=== PATIENT | female | born 1950 | race Caucasian/White ===

== ENCOUNTER 2016-09-27 12:48 | Inpatient (IN) | payer MEDICARE, OTHER ==
[2016-09-27 14:26] LABS: AUTOMATED BASOPHIL 0.4 % (0-2); AUTOMATED EOSINOPHIL 2.4 % (0-5); AUTOMATED MONOCYTE 9.7 % (3-10); AUTOMATED NEUTROPHIL 62.5 % (45-76); MPV 9.4 fL (7.4-10.4)
[2016-09-27 14:42] LABS: BLOOD UREA NITROGEN 19 MG/DL (7-17); CALCIUM 9.3 MG/DL (8.4-10.2); CALCULATED OSMOLALITY 275 MOs/Kg (270-290); CHLORIDE 100 mEq/L (98-107); CPK TOTAL WITH POSSIBLE MB 121 IU/L (30-134); GLUCOSE 128 MG/DL (70-99); SODIUM LEVEL 141 mEq/L (137-146); TOTAL PROTEIN 7.4 G/DL (6.3-8.2)
[2016-09-27 14:59] LABS: PARTIAL THROMB. TIME 40.4 SEC (22-35); PT-INR 2.4
[2016-09-27] MEDS ORDERED: ALBUTEROL 0.083% 3 ML NEB NEB ONE ×2 (15:03→15:04)
[2016-09-27] MEDS ORDERED: METHYLPREDNISOLONE 125 MG/2 ML VIAL IV ONE (15:04)
[2016-09-27 15:15] LABS: ALLEN'S TEST PASS; BEb 1.7 (+/- 2); TCO2 27.9 MMOL/L (23-27)
[2016-09-27 15:16] LABS: ABG Draw Site Right Radial
--- NOTE | 2016-09-27 15:20 | DIRPT ---
CLINICAL DATA: Cough, dyspnea. EXAM: CHEST 2 VIEW COMPARISON: March 31, 2014. FINDINGS: Stable cardiomediastinal silhouette. No pneumothorax or pleural effusion is noted. Left lung is clear. Increased right infrahilar opacity is noted concerning for possible pneumonia. Bony thorax unremarkable. IMPRESSION: Increased right infrahilar opacity is noted concerning for possible pneumonia. Follow-up radiographs are recommended to ensure resolution. Electronically Signed By: Kermit Warner Jr, M.D. On: 09/27/2016 15:17
[2016-09-27] MEDS ORDERED: CEFTRIAXONE 1 GM in D5W 100 ML IV ONE (15:29)
[2016-09-27] MEDS ORDERED: AZITHROMYCIN 250 MG TAB PO ONE (15:29)
[2016-09-27] MEDS ORDERED: ALBUTEROL 6.7 GM MDI INH ONE (15:31)
--- NOTE | 2016-09-27 15:32 | EDPRACDOC ---
- General Information Chief Complaint: Dyspnea/Resp distress Stated Complaint: COUGH/CONGESTION Time Seen by Provider: 09/27/16 15:00 Information Source: Patient, Family Mode Of Arrival: Car Home Medications: Home Medications Acetaminophen Ex Str Tablet [TYLENOL EXTRA STRENGTH Tablet] 1,000 mg PO Q8H PRN 07/31/15 Alprazolam 0.25 mg PO TID PRN 07/31/15 Amlodipine [Norvasc] 5 mg PO DAILY 07/31/15 Aspirin (Enteric Coated) [Ecotrin] 81 mg PO DAILY 07/31/15 Buspirone HCl [Buspar] 10 mg PO BID 07/31/15 Cholecalciferol [Vitamin D] 1,000 units PO DAILY 07/31/15 Gabapentin [Neurontin] 600 mg PO TID 07/31/15 Insulin Detemir [Levemir Flextouch] 42 units SQ QHS 07/31/15 Insulin Lispro [Humalog] 3 - 15 units SQ .PER SLIDING SCALE 07/31/15 Lisinopril [Prinivil] 20 mg PO DAILY 07/31/15 Magnesium Oxide [Mag-Ox] 400 mg PO BID 07/31/15 Melatonin/Pyridoxine HCl (B6) [Melatonin 1 mg Tablet] 2 tab PO QHS 07/31/15 Multivitamin [Multivitamins] 1 tab PO DAILY 07/31/15 Ropinirole HCl [Requip] 3 mg PO QHS 07/31/15 Warfarin Sodium [Coumadin] 7.5 mg PO SUMOWETHFR 07/31/15 Dulaglutide [Trulicity] 1.5 mg SQ SA 09/27/16 Ferrous Sulfate [Iron] 325 mg PO Q48H 09/27/16 LIDOCAINE 5% Patch [Lidoderm 5% Patch] 1 pat TOP Q12H PRN 09/27/16 Metolazone 5 mg PO DAILY 09/27/16 Metoprolol Succinate [Toprol Xl] 50 mg PO DAILY 09/27/16 Nitrofurantoin [Macrobid] 100 mg PO DAILY 09/27/16 Oxycodone HCl [Oxaydo] 5 mg PO TID PRN 09/27/16 Potassium Chloride 20 meq PO DAILY 09/27/16 Sertraline HCl [Zoloft] 200 mg PO DAILY 09/27/16 Warfarin Sodium 10 mg PO TUSA 01/13/17 Allergies/Adverse Reactions: Allergies Allergy/AdvReac Type Severity Reaction Status Date / Time metformin Allergy Diarrhea Verified 07/31/15 16:09 stuff with seeds in it Allergy Hives* Uncoded 09/27/16 15:54 - History of Present Illness Onset: FEW DAYS HPI: PT HAS HAD SOB AND COUGH FOR THE PAST FEW DAYS. THE PT SAID THAT HER WAS RECENTLY DX'D WITH PNA. THE PT HAS BEEN SOB AND HAS HAD A COUGH. THE PT SAW HER PCP TODAY AND HER O2 SAT WAS LOW, SO SHE WAS SENT HERE. THE PT WAS GIVEN 1 DUONEB EN ROUTE. PT STILL FEELS VERY WHEEZY. 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/Acetaminophen (Dose/ TYLENOL X2 0800 Time) ED Past Medical History - Patient Medical History Cardiac History: Reports: Atrial Fibrillation, Hypertension, Congestive Heart Failure Psychological History: Denies: Depression Systemic History: Reports: Cancer Surgical History: Reports: Cholecystectomy, Hysterectomy, Tonsillectomy/ Adnoidectomy - Social Medical History Smoking Status: Never smoker ETOH: None Substance Abuse: None Lives With: Spouse Lives In: Home EDM Review of Systems - Review of Systems ROS Negative Except as Marked: Yes All systems reviewed and were negative except as marked Respiratory: Cough, Shortness of Breath, Wheezing - Physical Exam Constitutional: Alert (Awake), No apparent distress Oriented to: Time, Person, Place Last recorded Vital Signs: Last Vital Signs Temp 98.9 F 09/27/16 13:55 Pulse 99 09/27/16 13:55 Resp 24 09/27/16 13:55 BP 130/56 L 09/27/16 13:55 Pulse Ox 91 09/27/16 13:55 Oxygen Pulse Oxygen Saturation 91 O2 Device Room Air Oxygen Flow Rate Fraction of Inspired Oxygen ( FIO2) - HEENT Head: Normal ( normocephalic) Eye Exam: Normal (PERRL, EOMI, Sclera white) Oropharynx: Normal (Pharynx:Moist without exudate,Gums-no swelling) ENT EAC: Normal TMJ: Normal Nose: No Symptoms Reported (septum midline) Neck: Normal (FROM, trachea at midline) - Respiratory/Cardiovascular Respiratory: Accessory Muscle Use, Tachypnea, Wheezes Cardiovascular: Irregular - GI Auscultation: Normal (NABS) Palpation: Normal (Soft,No rebound or guarding, non distended) Tenderness: Non tender Cevallos's Sign: Negative - Musculoskeletal Back: Normal (Non-Tender) Extremities: Normal (Normal tone, Pulses 2+ No cyanosis or edema, FROM) - Integumentary Skin: Normal, Warm, Dry Lymphatics: Normal (no adenopathy) - Neurologic Memory Impaired: Normal Motor Function: Normal (Normal tone, Pulses 2+ No cyanosis or edema, FROM) Cranial Nerve: Normal (CN II-X11 intact sensation, strength 5/5) Cerebellar: Normal Mood Description: Normal Perception: Normal ED SOB MDM - Results Result Diagrams: 09/27/16 14:07 09/27/16 14:07 Results: WBC 6.9 xk/uL (3.8-10.8) 09/27/16 14:07 RBC 5.48 xM/uL (4.20-5.40) H 09/27/16 14:07 Hgb 13.4 g/dL (12.0-16.0) 09/27/16 14:07 Hct 41.5 % (36-47) 09/27/16 14:07 MCV 76 fL (81-99) L 09/27/16 14:07 MCH 24.5 pg (27-32) L 09/27/16 14:07 MCHC 32.3 g/dl (33-36) L 09/27/16 14:07 RDW 17.3 % (11.5-14.5) H 09/27/16 14:07 Plt Count 144 xk/uL (130-400) 09/27/16 14:07 MPV 9.4 fL (7.4-10.4) 09/27/16 14:07 Neut % (Auto) 62.5 % (45-76) 09/27/16 14:07 Lymph % (Auto) 25.0 % (17-44) 09/27/16 14:07 [place] % (Auto) 9.7 % (3-10) 09/27/16 14:07 Eos % (Auto) 2.4 % (0-5) 09/27/16 14:07 Baso % (Auto) 0.4 % (0-2) 09/27/16 14:07 Absolute Neuts (auto) 4.28 xk/uL (1.7-8.2) 09/27/16 14:07 Absolute Lymphs (auto) 1.73 xk/uL (0.65-4.75) 09/27/16 14:07 PT 24.6 SEC (9.2-11.2) H 09/27/16 14:07 INR 2.4 09/27/16 14:07 APTT 40.4 SEC (22-35) H 09/27/16 14:07 Puncture Site Right radial 09/27/16 15:10 pH 7.410 pH UNITS (7.35-7.45) 09/27/16 15:10 pCO2 42.0 mmHg (35-45) 09/27/16 15:10 pO2 65.0 mmHg (80-100) L 09/27/16 15:10 HCO3 26.6 MMOL/L (22-26) H 09/27/16 15:10 Total CO2 27.9 MMOL/L (23-27) H 09/27/16 15:10 Base Excess 1.7 (+/- 2) 09/27/16 15:10 FiO2 % 21% 09/27/16 15:10 Specimen Drawn By Roude 09/27/16 15:10 Sodium 141 mEq/L (137-146) 09/27/16 14:07 Potassium 3.7 mEq/L (3.5-5.1) 09/27/16 14:07 Chloride 100 mEq/L (98-107) 09/27/16 14:07 Carbon Dioxide 30 mMOL/L (22-33) 09/27/16 14:07 Anion Gap 15 mEq/L (8-16) 09/27/16 14:07 BUN 19 MG/DL (7-17) H 09/27/16 14:07 Creatinine 0.80 MG/DL (0.52-1.04) 09/27/16 14:07 Estimated GFR (MDRD) > 60 mL/min (>=60) 09/27/16 14:07 Glucose 128 MG/DL (70-99) H 09/27/16 14:07 Calculated Osmolality 275 MOs/Kg (270-290) 09/27/16 14:07 Lactic Acid 0.9 mEq/L (0.7-2.1) 09/27/16 14:07 Calcium 9.3 MG/DL (8.4-10.2) 09/27/16 14:07 Total Bilirubin 0.8 MG/DL (0.2-1.3) 09/27/16 14:07 AST 26 IU/L (14-36) 09/27/16 14:07 ALT 25 IU/L (9-52) 09/27/16 14:07 Alkaline Phosphatase 87 IU/L (55-165) 09/27/16 14:07 Creatine Kinase 121 IU/L (30-134) 09/27/16 14:07 Troponin I < 0.01 ng/mL (<.04) 09/27/16 14:07 Kqj-C-Nanrqbtpyav Pept 831 pg/mL (0-900) 09/27/16 14:07 Total Protein 7.4 G/DL (6.3-8.2) 09/27/16 14:07 Albumin 4.3 G/DL (3.5-5.0) 09/27/16 14:07 Lab Results 09/27/16 09/27/16 09/27/16 15:10 14:07 14:07 WBC RBC Hgb Hct MCV MCH MCHC RDW Plt Count MPV Neut % (Auto) Lymph % (Auto) [place] % (Auto) Eos % (Auto) Baso % (Auto) Absolute Neuts (auto) Absolute Lymphs (auto) PT 24.6 H INR 2.4 APTT 40.4 H Puncture Site Right radial pH 7.410 pCO2 42.0 pO2 65.0 L HCO3 26.6 H Total CO2 27.9 H Base Excess 1.7 FiO2 % 21% Specimen Drawn By Roude Sodium Potassium Chloride Carbon Dioxide Anion Gap BUN Creatinine Estimated GFR (MDRD) Glucose Calculated Osmolality Lactic Acid 0.9 Calcium Total Bilirubin AST ALT Alkaline Phosphatase Creatine Kinase Troponin I Ukm-B-Wepmrbfxstp Pept Total Protein Albumin 09/27/16 09/27/16 14:07 14:07 WBC 6.9 RBC 5.48 H Hgb 13.4 Hct 41.5 MCV 76 L MCH 24.5 L MCHC 32.3 L RDW 17.3 H Plt Count 144 MPV 9.4 Neut % (Auto) 62.5 Lymph % (Auto) 25.0 [place] % (Auto) 9.7 Eos % (Auto) 2.4 Baso % (Auto) 0.4 Absolute Neuts (auto) 4.28 Absolute Lymphs (auto) 1.73 PT INR APTT Puncture Site pH pCO2 pO2 HCO3 Total CO2 Base Excess FiO2 % Specimen Drawn By Sodium 141 Potassium 3.7 Chloride 100 Carbon Dioxide 30 Anion Gap 15 BUN 19 H Creatinine 0.80 Estimated GFR (MDRD) > 60 Glucose 128 H Calculated Osmolality 275 Lactic Acid Calcium 9.3 Total Bilirubin 0.8 AST 26 ALT 25 Alkaline Phosphatase 87 Creatine Kinase 121 Troponin I < 0.01 Eol-D-Rswfjvtpjsx Pept 831 Total Protein 7.4 Albumin 4.3 - EKG EKG #1 EKG Time: 15:41 -: Yes EKG interpreted by me Rate: bpm: 94 [place]: Normal Rhythm: Afib Block: None Hypertrophy: None ST: Normal - Diagnostic Imaging Chest Image interpreted by: Radiologist Diagnostic Imaging Comments: Increased right infrahilar opacity is noted concerning for possible pneumonia. Follow-up radiographs are recommended to ensure resolution. - Additional Information Additional Information: PT DID SEEM TO DO BETTER AFTER A NEB, BUT SX SHORTLY RETURNED. PT'S RA O2 SAT RESTING 91%. HOWEVER, WITH AMBULATION, PT'S O2 SATS DROP TO 84% AND SHE IS VERY DYSPNEIC. - Departure Yes I personally saw and evaluated the patient. Disposition: Admit IP To This Hospital Condition: Fair Final Diagnosis: RIGHT INFRAHILAR PNEUMONIA, Acute respiratory failure with hypoxia, RAD ( reactive airway disease) Education/Counseling Given To: Patient Education/Counseling Given Regarding: Diagnosis, Treatment Decision to Admit Time: 16:55 Decision to admit date: 09/27/16 Decision to admit: from ED - Physician Consulted Hospitalist Provider Called: Kelly Crawford
[2016-09-27] MEDS ORDERED: GLUCOSE (ORAL GEL) 15 GM TUBE PO PRN (17:28)
[2016-09-27] MEDS ORDERED: GLUCAGON 1 MG VIAL SQ PRN (17:28)
[2016-09-27] MEDS ORDERED: DEXTROSE 25 GM/50 ML PFS IV PRN (17:28)
[2016-09-27] MEDS ORDERED: ALBUTEROL 0.083% 3 ML NEB NEB PRN (17:28)
[2016-09-27] MEDS ORDERED: LIDOCAINE 5% PATCH TOP PRN (17:32)
[2016-09-27] MEDS ORDERED: ALPRAZOLAM 0.25 MG TAB PO PRN (17:32)
--- NOTE | 2016-09-27 17:42 | HISTPHYS ---
- Chief Complaint sob, cough - History of Present Illness For is old white female presented emergency room early on today for evaluation of progressive worsening difficulties breathing cough chest tightness wheezes and phlegm production. Patient stays that almost a week ago she has developed chest cold and head cold with clear nasal discharge and cough productive of small amount of clear sputum. Patient developed chest tightness wheezes and cough productive of thick yellowish greenish phlegm. Despite using home remedies she did not sustain asymptomatic improvement and early on today she has found herself gasping for air. She reports a pleuritic chest pain and low- grade fevers but denies any sweats or chills. Upon arrival in ED patient was found to be in moderate respiratory distress hypoxic tachypneic and tachycardic , chest x-ray showed right infrahilar infiltrate. Medical consultation was phoned in for inpatient treatment. - Medical History Cardiac History: Reports: Atrial Fibrillation, Hypertension, Congestive Heart Failure, Valvular Heart Disease Respiratory History: Reports: Asthma, Pneumonia GI/ History: Reports: Renal Disease, Urinary Tract Infection, Gastroesophageal Reflux Musculoskeletal History: Reports: Osteoarthritis Systemic History: Reports: Cancer Neurological History: Reports: No Significant History Psychological History: Reports: No Significant History. Denies: Depression - Surgical History Reports: Cholecystectomy, Hysterectomy, Tonsillectomy/Adnoidectomy, Other ( rotator,, skin cyst,right hip x 2 ,) - Medictions/Allergies Allergies metformin Allergy (Verified 07/31/15 16:09) Diarrhea stuff with seeds in it Allergy (Uncoded 09/27/16 15:54) Hives* cucumbers, tomatoes, etc. PT HAS DIVERTICULITIS. Current Medication List: Reviewed Home Medications Acetaminophen Ex Str Tablet [TYLENOL EXTRA STRENGTH Tablet] 1,000 mg PO Q8H PRN 07/31/15 Alprazolam 0.25 mg PO TID PRN 07/31/15 Amlodipine [Norvasc] 5 mg PO DAILY 07/31/15 Aspirin (Enteric Coated) [Ecotrin] 81 mg PO DAILY 07/31/15 Buspirone HCl [Buspar] 10 mg PO BID 07/31/15 Cholecalciferol [Vitamin D] 1,000 units PO DAILY 07/31/15 Gabapentin [Neurontin] 600 mg PO TID 07/31/15 Insulin Detemir [Levemir Flextouch] 42 units SQ QHS 07/31/15 Insulin Lispro [Humalog] 3 - 15 units SQ .PER SLIDING SCALE 07/31/15 Lisinopril [Prinivil] 20 mg PO DAILY 07/31/15 Magnesium Oxide [Mag-Ox] 400 mg PO BID 07/31/15 Melatonin/Pyridoxine HCl (B6) [Melatonin 1 mg Tablet] 2 tab PO QHS 07/31/15 Multivitamin [Multivitamins] 1 tab PO DAILY 07/31/15 Ropinirole HCl [Requip] 3 mg PO QHS 07/31/15 Warfarin Sodium [Coumadin] 7.5 mg PO SUMOWETHFR 07/31/15 Dulaglutide [Trulicity] 1.5 mg SQ SA 09/27/16 Ferrous Sulfate [Iron] 325 mg PO Q48H 09/27/16 LIDOCAINE 5% Patch [Lidoderm 5% Patch] 1 pat TOP Q12H PRN 09/27/16 Metolazone 5 mg PO DAILY 09/27/16 Metoprolol Succinate [Toprol Xl] 50 mg PO DAILY 09/27/16 Nitrofurantoin [Macrobid] 100 mg PO DAILY 09/27/16 Oxycodone HCl [Oxaydo] 5 mg PO TID PRN 09/27/16 Potassium Chloride 20 meq PO DAILY 09/27/16 Sertraline HCl [Zoloft] 200 mg PO DAILY 09/27/16 Warfarin Sodium 10 mg PO TUSA 09/27/16 - Family History Reports: Cardiac Disorders, Respiratory Disorders - Social History Travel Outside of [place] in the Last 3 Months?: No Lives: With Family Smoking Status: Never smoker - Review of Systems Constitutional: Fever, Diaphoresis, Fatigue, Loss of Appetite, Weakness Eyes: No Symptoms Reported Ears: No Symptoms Reported Nose: No Symptoms Reported Mouth: No Symptoms Reported Throat/Neck: No Symptoms Reported Respiratory: Cough, Shortness of Breath, Wheezing, Sputum, Dyspnea Cardiovascular: No Symptoms Reported Gastrointestinal: No Symptoms Reported, Constipation, Heartburn Genitourinary: No Symptoms Reported Neurological: No Symptoms Reported Musculoskeletal:: Arthritis Integumentary: No Symptoms Reported Allergic/Immunologic: No Symptoms Reported Hematologic: No Symptoms Reported Endocrine: No Symptoms Reported Psychiatric: No Symptoms Reported - Physical Exam Vital Signs: Initial Vitals Temperature 98.9 F 09/27/16 13:55 Pulse Rate 99 09/27/16 13:55 Respiratory Rate 24 09/27/16 13:55 Blood Pressure 130/56 L 09/27/16 13:55 Pulse Oxygen Saturation 91 09/27/16 13:55 Constitutional: Alert, Distress Oriented to: Time, Person, Place - HEENT Head: Normal Eye: Normal Oropharynx: Normal ENT EAC: Normal TMJ: Normal Nose: No Symptoms Reported Respiratory: Normal - CTA, Diminished, Rhonchi, Wheezes Cardiovascular: Normal, Systolic murmur - GI Auscultation: Normal Palpation: Normal Tenderness: Non tender Rectal Exam: Deferred - Exam Deferred: Yes - Musculoskeletal Back: Normal Extremities: Edema Spine: limited range of motion - Integumentary Skin: Normal, Warm, Dry Lymphatics: Normal - Neurologic Memory Impaired: Normal Motor Function: Normal Cranial Nerve: Normal Cerebellar: Normal Mood Description: Anxious Thought: Coherent Perception: Normal - Focused CV Perfusion Exam Vital Signs: Last Vital Signs Temp 98.9 F 09/27/16 13:55 Pulse 83 09/27/16 17:05 Resp 22 09/27/16 17:05 BP 138/63 09/27/16 17:05 Pulse Ox 93 09/27/16 17:05 - Diagnostic Findings Last Vital Signs Temp 98.9 F 09/27/16 13:55 Pulse 83 09/27/16 17:05 Resp 22 09/27/16 17:05 BP 138/63 09/27/16 17:05 Pulse Ox 93 09/27/16 17:05 09/27/16 14:07 09/27/16 14:07 Abnormal Lab Results 09/27/16 09/27/16 09/27/16 14:07 14:07 14:07 RBC 5.48 H MCV 76 L MCH 24.5 L MCHC 32.3 L RDW 17.3 H PT 24.6 H APTT 40.4 H pO2 HCO3 Total CO2 BUN 19 H Glucose 128 H Digoxin 09/27/16 09/27/16 14:07 15:10 RBC MCV MCH MCHC RDW PT APTT pO2 65.0 L HCO3 26.6 H Total CO2 27.9 H BUN Glucose Digoxin < 0.40 L Patient Name: ANATOLY SANCHEZ LOC: ED : 1950 AGE: 66 Order Date:09/27/16 Date of Service: Report # [id number] Ord Physician: Fernando Dowell MD Exam # [id number] Emergency Physician: Mona Rodriguez MD Exam(s): [id number] RAD/DG CHEST 2V CLINICAL DATA: Cough, dyspnea. EXAM: CHEST 2 VIEW COMPARISON: March 31, 2014. FINDINGS: Stable cardiomediastinal silhouette. No pneumothorax or pleural effusion is noted. Left lung is clear. Increased right infrahilar opacity is noted concerning for possible pneumonia. Bony thorax unremarkable. IMPRESSION: Increased right infrahilar opacity is noted concerning for possible pneumonia. Follow-up radiographs are recommended to ensure resolution. Electronically Signed By: Kermit Warner Jr, M.D. On: 09/27/2016 15:17 Electronically Signed By: Kermit Warner MD - Assessment (1) Acute respiratory failure with hypoxia J96.01 - ACUTE RESPIRATORY FAILURE WITH HYPOXIA Acute Present on Admission: Yes Patient will be admitted to monitor bed.. Supplemental O2 will be provided. Monitor pulmonary status closely. Will provide flutter valve and incentive spirometer. (2) Bacterial pneumonia J15.9 - UNSPECIFIED BACTERIAL PNEUMONIA Acute Present on Admission: Yes Patient will receive IV antibiotics in the form of Rocephin and Zithromax. Continue aggressive pulmonary toileting. Monitor cultures. (3) Afib I48.91 - UNSPECIFIED ATRIAL FIBRILLATION Chronic Present on Admission: Yes Qualifiers: Atrial fibrillation type: chronic Qualified Code(s): I48.2 - Chronic atrial fibrillation Rate controlled. Keep K more than 4 magnesium more than 2. coagulated with Coumadin. (4) HTN (hypertension) I10 - ESSENTIAL (PRIMARY) HYPERTENSION Chronic Present on Admission: Yes Qualifiers: Hypertension type: essential hypertension Qualified Code(s): I10 - Essential (primary) hypertension Stable on meds, keep SBP less than 140. (5) DM2 (diabetes mellitus, type 2) E11.9 - TYPE 2 DIABETES MELLITUS WITHOUT COMPLICATIONS Acute Qualifiers: Diabetes mellitus complication status: with neurologic complications Continue ADA diet Lantus and sliding scale regular insulin. Monitor blood sugar. 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
[2016-09-27] MEDS ORDERED: INSULIN DETEMIR 100 UNITS/ML PEN SQ SCH (18:00)
[2016-09-27] MEDS ORDERED: NS 1,000 ML IV SCH (18:00)
[2016-09-27] MEDS ORDERED: WARFARIN EDUCATION DOCUMENTATION ONE (19:00)
[2016-09-27] MEDS: ALBUTEROL 0.083% 3 ML NEB NEB SCH (19:45)
[2016-09-27] MEDS: MAGNESIUM OXIDE 400 MG TAB PO SCH ×2 (19:56→22:02)
[2016-09-27] MEDS: REGULAR INSULIN 100 UNITS/ML - 3 ML VIAL SQ SCH (19:56)
[2016-09-27 20:35] LABS: CPK TOTAL WITH POSSIBLE MB 111 IU/L (30-134)
[2016-09-27] MEDS: WARFARIN 7.5 MG TAB PO SCH (21:59)
[2016-09-27] MEDS: BUSPIRONE 10 MG TAB PO SCH (21:59)
[2016-09-27] MEDS: INSULIN DETEMIR 100 UNITS/ML PEN SQ SCH (22:00)
[2016-09-27] MEDS: GUAIFENESIN 600 MG LA TAB PO SCH (22:01)
[2016-09-27] MEDS: GABAPENTIN 300 MG CAP PO SCH (22:02)
[2016-09-27] MEDS: ROPINIROLE 1 MG TAB PO SCH (22:02)
[2016-09-27] MEDS: METHYLPREDNISOLONE 125 MG/2 ML VIAL IV SCH (22:03)
[2016-09-27] MEDS: NS 1,000 ML IV SCH (23:33)
[2016-09-27] MEDS: OXYCODONE HCL 5 MG TABLET PO PRN (23:38)
[2016-09-28] MEDS: ALBUTEROL 0.083% 3 ML NEB NEB SCH ×4 (01:33→19:54)
[2016-09-28] MEDS ORDERED: Vaccine Screening Complete SCH (02:00)
[2016-09-28] MEDS: REGULAR INSULIN 100 UNITS/ML - 3 ML VIAL SQ SCH ×5 (02:48→23:38)
[2016-09-28] MEDS: GABAPENTIN 300 MG CAP PO SCH ×3 (05:29→21:19)
[2016-09-28] MEDS: METHYLPREDNISOLONE 125 MG/2 ML VIAL IV SCH ×2 (05:29→09:50)
[2016-09-28 05:47] LABS: AUTOMATED EOSINOPHIL 0.1 % (0-5); BLOOD UREA NITROGEN 27 MG/DL (7-17); CALCIUM 8.9 MG/DL (8.4-10.2); CALCULATED OSMOLALITY 282 MOs/Kg (270-290); CHLORIDE 98 mEq/L (98-107); GLUCOSE 365 MG/DL (70-99); MPV 10.5 fL (7.4-10.4); SODIUM LEVEL 136 mEq/L (137-146)
[2016-09-28 05:49] LABS: AUTOMATED BASOPHIL 1.1 % (0-2); AUTOMATED LYMPH 16.4 % (17-44); AUTOMATED MONOCYTE 3.6 % (3-10); AUTOMATED NEUTROPHIL 78.8 % (45-76)
[2016-09-28] MEDS: This patient is receiving warfarin therapy SCH (07:55)
[2016-09-28] MEDS: LISINOPRIL 20 MG TAB PO SCH (07:56)
[2016-09-28] MEDS: VITAMINS, MULTIPLE CAP PO SCH (07:56)
[2016-09-28] MEDS: GUAIFENESIN 600 MG LA TAB PO SCH ×2 (07:56→21:19)
[2016-09-28] MEDS: NITROFURANTOIN 100 MG CAP PO SCH (07:56)
[2016-09-28] MEDS: POTASSIUM CHLORIDE 20 MEQ TAB PO SCH (07:57)
[2016-09-28] MEDS: AMLODIPINE 5 MG TAB PO SCH (07:57)
[2016-09-28] MEDS: METOPROLOL (TOPROL-XL) 50 MG TAB PO SCH (07:57)
[2016-09-28] MEDS: BUSPIRONE 10 MG TAB PO SCH ×2 (07:57→21:19)
[2016-09-28] MEDS: METOLAZONE 5 MG TAB PO SCH (07:57)
[2016-09-28] MEDS: SERTRALINE HCL 100 MG TAB PO SCH (07:58)
[2016-09-28] MEDS: FUROSEMIDE 40 MG/4 ML VIAL IV SCH (07:58)
[2016-09-28] MEDS: CHOLECALCIFEROL 1000 UNITS TAB PO SCH (07:59)
[2016-09-28] MEDS: FERROUS SULFATE 324 MG TAB PO SCH (09:50)
--- NOTE | 2016-09-28 14:54 | GENMEDPROG ---
Subjective Note: Patient in bed responsive follows commands. Breathing better, still coughing producing small amount of sputum no hemoptysis.. Blood sugar on higher side due to IV steroids. Notes Reviewed: Yes Events from last night noted and discussed with Clinical Staff Current Medication List: Reviewed Currently: Reports: Cough, Wheezing, DOUGLAS, SOB, Sputum, Reflux Sx DVT Prophylaxis: Yes - Physical Examination Vital Signs and I&O: Last Vital Signs Temp 98.1 F 09/28/16 11:10 Pulse 99 09/28/16 13:38 Resp 18 09/28/16 11:10 BP 123/62 09/28/16 11:10 Pulse Ox 95 09/28/16 11:10 Oxygen Pulse Oxygen Saturation 95 O2 Device Nasal Cannula Oxygen Flow Rate 2 Fraction of Inspired Oxygen ( FIO2) Intake & Output 09/25/16 09/26/16 09/27/16 09/28/16 23:59 23:59 23:59 23:59 Intake Total 100 789 Output Total 1000 Balance 100 -211 Patient's weight 128.548 kg 128.548 kg General: Alert, Oriented x3, Cooperative, No acute distress HEENT: Normal, PERRLA, EOMI, Anicteric Sclera Neck: Non-tender, Normal inspection, Limited range of motion Lymphatics: Normal Respiratory: Normal - CTA, Diminished, Rhonchi, Wheezes Cardiovascular: Regular rate, Normal S1, Normal S2 GI: Normal bowel sounds, Soft, Non tender, No hepatospenomegaly, No masses, Obese Extremities/Musculoskeletal: Edema, DJD Skin: Warm,Dry and Intact, No rashes, No breakdown, No significant lesion Neurological: Normal speech, Normal tone, Cranial nerves 3-12 NL Psych/Mental Status: Anxious Lab/DI/Studies Reviewed: Last Vital Signs Temp 98.1 F 09/28/16 11:10 Pulse 99 09/28/16 13:38 Resp 18 09/28/16 11:10 BP 123/62 09/28/16 11:10 Pulse Ox 95 09/28/16 11:10 09/28/16 04:45 09/28/16 04:45 - Assessment (1) Acute respiratory failure with hypoxia Acute J96.01 - ACUTE RESPIRATORY FAILURE WITH HYPOXIA Comment/Plan: Continue O2 nebs and pulmonary toilet. Monitor pulmonary status. (2) Bacterial pneumonia Acute J15.9 - UNSPECIFIED BACTERIAL PNEUMONIA Comment/Plan: Continue IV antibiotics in the form of Rocephin and Zithromax, continue aggressive pulmonary toilet. (3) Afib Chronic I48.91 - UNSPECIFIED ATRIAL FIBRILLATION Qualifiers: Atrial fibrillation type: chronic Qualified Code(s): I48.2 - Chronic atrial fibrillation Comment/Plan: Rate controlled. Keep K more than 4 magnesium more than 2. coagulated with Coumadin. (4) HTN (hypertension) Chronic I10 - ESSENTIAL (PRIMARY) HYPERTENSION Qualifiers: Hypertension type: essential hypertension Qualified Code(s): I10 - Essential (primary) hypertension Comment/Plan: Stable on meds, keep SBP less than 140. (5) DM2 (diabetes mellitus, type 2) Acute E11.9 - TYPE 2 DIABETES MELLITUS WITHOUT COMPLICATIONS Qualifiers: Diabetes mellitus complication status: with neurologic complications Comment/Plan: Continue ADA diet Lantus and sliding scale regular insulin. Monitor blood sugar continue high-dose sliding scale regular insulin (6) GERD (gastroesophageal reflux disease) Chronic K21.9 - GASTRO-ESOPHAGEAL REFLUX DISEASE WITHOUT ESOPHAGITIS Qualifiers: Esophagitis presence: without esophagitis Qualified Code(s): K21.9 - Gastro -esophageal reflux disease without esophagitis Comment/Plan: Continue PPI Case Care Discussed with: Patient, Family, Nursing Staff, Perinatal Instructor Education/Counseling Given To: Patient Education/Counseling Given Regarding: Diagnosis, Treatment, Prognosis, Follow Up Total Time: 45 min . Critical Care: No Code: 86462 (12+)
[2016-09-28] MEDS: CEFTRIAXONE 1 GM in D5W 100 ML IV SCH (15:19)
[2016-09-28] MEDS: NS 1,000 ML IV SCH (15:20)
[2016-09-28] MEDS: AZITHROMYCIN 500 MG in D5W 250 ML IV SCH (15:55)
[2016-09-28] MEDS: MAGNESIUM OXIDE 400 MG TAB PO SCH (15:55)
[2016-09-28] MEDS: METHYLPREDNISOLONE 40 MG/1 ML VIAL IV SCH (16:37)
[2016-09-28] MEDS ORDERED: DULAGLUTIDE 1.5 MG SQ SCH (17:32)
[2016-09-28] MEDS ORDERED: WARFARIN 10 MG TAB PO SCH (18:00)
[2016-09-28] MEDS: INSULIN DETEMIR 100 UNITS/ML PEN SQ SCH (21:19)
[2016-09-28] MEDS: PYRIDOXINE 50 MG TAB PO SCH (21:20)
[2016-09-28] MEDS: ROPINIROLE 1 MG TAB PO SCH (21:20)
[2016-09-28] MEDS: OXYCODONE HCL 5 MG TABLET PO PRN (21:21)
[2016-09-29] MEDS: ALBUTEROL 0.083% 3 ML NEB NEB SCH ×4 (01:27→20:46)
[2016-09-29] MEDS: METHYLPREDNISOLONE 40 MG/1 ML VIAL IV SCH ×3 (01:30→16:13)
[2016-09-29 03:16] LABS: AUTOMATED BASOPHIL 0.1 % (0-2); AUTOMATED LYMPH 11.7 % (17-44); AUTOMATED MONOCYTE 7.3 % (3-10); AUTOMATED NEUTROPHIL 80.9 % (45-76); MPV 9.8 fL (7.4-10.4)
[2016-09-29 03:22] LABS: PT-INR 2.6
[2016-09-29 03:26] LABS: BLOOD UREA NITROGEN 33 MG/DL (7-17); CALCIUM 9.5 MG/DL (8.4-10.2); CALCULATED OSMOLALITY 282 MOs/Kg (270-290); CHLORIDE 100 mEq/L (98-107); GLUCOSE 224 MG/DL (70-99); SODIUM LEVEL 139 mEq/L (137-146)
[2016-09-29] MEDS: GABAPENTIN 300 MG CAP PO SCH ×3 (06:09→21:16)
[2016-09-29] MEDS: REGULAR INSULIN 100 UNITS/ML - 3 ML VIAL SQ SCH ×3 (06:10→16:18)
[2016-09-29] MEDS: VITAMINS, MULTIPLE CAP PO SCH (09:10)
[2016-09-29] MEDS: FUROSEMIDE 40 MG/4 ML VIAL IV SCH (09:11)
[2016-09-29] MEDS: NITROFURANTOIN 100 MG CAP PO SCH (09:11)
[2016-09-29] MEDS: AMLODIPINE 5 MG TAB PO SCH (09:11)
[2016-09-29] MEDS: GUAIFENESIN 600 MG LA TAB PO SCH ×2 (09:11→21:17)
[2016-09-29] MEDS: MAGNESIUM OXIDE 400 MG TAB PO SCH ×2 (09:11→16:11)
[2016-09-29] MEDS: LISINOPRIL 20 MG TAB PO SCH (09:12)
[2016-09-29] MEDS: CHOLECALCIFEROL 1000 UNITS TAB PO SCH (09:12)
[2016-09-29] MEDS: METOPROLOL (TOPROL-XL) 50 MG TAB PO SCH (09:12)
[2016-09-29] MEDS: POTASSIUM CHLORIDE 20 MEQ TAB PO SCH (09:12)
[2016-09-29] MEDS: METOLAZONE 5 MG TAB PO SCH (09:12)
[2016-09-29] MEDS: BUSPIRONE 10 MG TAB PO SCH ×2 (09:13→21:16)
[2016-09-29] MEDS: SERTRALINE HCL 100 MG TAB PO SCH (09:13)
[2016-09-29] MEDS: This patient is receiving warfarin therapy SCH (09:14)
--- NOTE | 2016-09-29 09:15 | GENMEDPROG ---
Subjective Note: Patient in bed responsive follows commands, breathing better still coughing producing small amount of sputum. Still mildly dyspneic with physical exertion. No hemoptysis Notes Reviewed: Yes Events from last night noted and discussed with Clinical Staff Current Medication List: Reviewed Currently: Reports: Cough, Wheezing, DOUGLAS, SOB, Sputum, Reflux Sx DVT Prophylaxis: Yes - Physical Examination Vital Signs and I&O: Last Vital Signs Temp 98.2 F 09/29/16 08:11 Pulse 82 09/29/16 08:25 Resp 16 09/29/16 08:11 BP 138/82 09/29/16 08:11 Pulse Ox 94 09/29/16 08:11 Oxygen Pulse Oxygen Saturation 94 O2 Device Nasal Cannula Oxygen Flow Rate 2 Fraction of Inspired Oxygen ( FIO2) Intake & Output 09/26/16 09/27/16 09/28/16 09/29/16 23:59 23:59 23:59 23:59 Intake Total 100 1809 645 Output Total 1600 200 Balance 100 209 445 Patient's weight 128.548 kg 128.548 kg 128.083 kg General: Alert, Oriented x3, Cooperative, No acute distress HEENT: Normal, PERRLA, EOMI, Anicteric Sclera Neck: Non-tender, Normal inspection, Limited range of motion Lymphatics: Normal Respiratory: Normal - CTA, Diminished, Rhonchi, Wheezes Cardiovascular: Regular rate, Normal S1, Normal S2 GI: Normal bowel sounds, Soft, Non tender, No hepatospenomegaly, No masses, Obese Extremities/Musculoskeletal: Edema, DJD Skin: Warm,Dry and Intact, No rashes, No breakdown, No significant lesion Neurological: Normal speech, Normal tone, Cranial nerves 3-12 NL Psych/Mental Status: Anxious Lab/DI/Studies Reviewed: Last Vital Signs Temp 98.2 F 09/29/16 08:11 Pulse 82 09/29/16 08:25 Resp 16 09/29/16 08:11 BP 138/82 09/29/16 08:11 Pulse Ox 94 09/29/16 08:11 09/29/16 02:55 09/29/16 02:55 Abnormal Lab Results 09/28/16 09/28/16 09/28/16 11:19 15:46 23:14 WBC MCV MCH MCHC RDW Neut % (Auto) Lymph % (Auto) Absolute Neuts (auto) PT BUN Glucose POC Capillary Glucose 392 H 395 H 328 H 09/29/16 09/29/16 09/29/16 02:55 02:55 02:55 WBC 12.4 H MCV 76 L MCH 24.0 L MCHC 31.5 L RDW 16.8 H Neut % (Auto) 80.9 H Lymph % (Auto) 11.7 L Absolute Neuts (auto) 9.92 H PT 27.0 H BUN 33 H Glucose 224 H POC Capillary Glucose 09/29/16 05:08 WBC MCV MCH MCHC RDW Neut % (Auto) Lymph % (Auto) Absolute Neuts (auto) PT BUN Glucose POC Capillary Glucose 227 H - Assessment (1) Acute respiratory failure with hypoxia Acute J96.01 - ACUTE RESPIRATORY FAILURE WITH HYPOXIA Comment/Plan: Continue O2 nebs and pulmonary toilet. Monitor pulmonary status. Clinically improving wean off O2 as tolerated (2) Bacterial pneumonia Acute J15.9 - UNSPECIFIED BACTERIAL PNEUMONIA Comment/Plan: Continue IV antibiotics in the form of Rocephin and Zithromax, continue aggressive pulmonary toilet. Wean off IV steroids (3) Afib Chronic I48.91 - UNSPECIFIED ATRIAL FIBRILLATION Qualifiers: Atrial fibrillation type: chronic Qualified Code(s): I48.2 - Chronic atrial fibrillation Comment/Plan: Rate controlled. Keep K more than 4 magnesium more than 2. coagulated with Coumadin. (4) HTN (hypertension) Chronic I10 - ESSENTIAL (PRIMARY) HYPERTENSION Qualifiers: Hypertension type: essential hypertension Qualified Code(s): I10 - Essential (primary) hypertension Comment/Plan: Stable on meds, keep SBP less than 140. (5) DM2 (diabetes mellitus, type 2) Acute E11.9 - TYPE 2 DIABETES MELLITUS WITHOUT COMPLICATIONS Qualifiers: Diabetes mellitus complication status: with neurologic complications Comment/Plan: Continue ADA diet Lantus and sliding scale regular insulin. Monitor blood sugar continue high-dose sliding scale regular insulin (6) GERD (gastroesophageal reflux disease) Chronic K21.9 - GASTRO-ESOPHAGEAL REFLUX DISEASE WITHOUT ESOPHAGITIS Qualifiers: Esophagitis presence: without esophagitis Qualified Code(s): K21.9 - Gastro -esophageal reflux disease without esophagitis Comment/Plan: Continue PPI Case Care Discussed with: Patient, Family, Nursing Staff, Respiratory Therapy Education/Counseling Given To: Patient Education/Counseling Given Regarding: Diagnosis, Treatment, Prognosis, Follow Up Total Time: 45 min. Critical Care: No Code: 78589 (12+)
[2016-09-29] MEDS ORDERED: Magnesium Sulfate 2 gm/D5W 2 GM/50 ML RTU IV ONE (10:00)
--- NOTE | 2016-09-29 10:43 | DIRPT ---
CLINICAL DATA: Respiratory failure EXAM: CHEST 2 VIEW COMPARISON: 09/27/2016 FINDINGS: Normal cardiac silhouette. There is bibasilar opacities not significant changed from prior. Upper lungs are clear. Flowing osteophytosis of the thoracic spine. IMPRESSION: No change in bibasilar atelectasis versus infiltrates. Electronically Signed By: Osman Golden M.D. On: 09/29/2016 10:41
[2016-09-29] MEDS: OXYCODONE HCL 5 MG TABLET PO PRN ×2 (10:51→19:00)
[2016-09-29] MEDS ORDERED: GLUCAGON 1 MG VIAL SQ PRN (15:35)
[2016-09-29] MEDS ORDERED: GLUCOSE (ORAL GEL) 15 GM TUBE PO PRN (15:35)
[2016-09-29] MEDS ORDERED: DEXTROSE 25 GM/50 ML PFS IV PRN (15:35)
[2016-09-29] MEDS: CEFTRIAXONE 1 GM in D5W 100 ML IV SCH (16:10)
[2016-09-29] MEDS: WARFARIN 7.5 MG TAB PO SCH (16:12)
[2016-09-29] MEDS: NS 1,000 ML IV SCH (16:12)
[2016-09-29] MEDS: AZITHROMYCIN 500 MG in D5W 250 ML IV SCH (16:51)
[2016-09-29] MEDS: PYRIDOXINE 50 MG TAB PO SCH (21:17)
[2016-09-29] MEDS: ROPINIROLE 1 MG TAB PO SCH (21:17)
[2016-09-29] MEDS: INSULIN DETEMIR 100 UNITS/ML PEN SQ SCH (21:20)
[2016-09-29] MEDS: ACETAMINOPHEN 500 MG CAPLET PO PRN (22:10)
[2016-09-30] MEDS: REGULAR INSULIN 100 UNITS/ML - 3 ML VIAL SQ SCH ×3 (00:25→13:08)
[2016-09-30] MEDS: ALBUTEROL 0.083% 3 ML NEB NEB SCH ×3 (02:21→13:43)
[2016-09-30] MEDS: METHYLPREDNISOLONE 40 MG/1 ML VIAL IV SCH ×2 (02:58→09:18)
[2016-09-30] MEDS: OXYCODONE HCL 5 MG TABLET PO PRN (03:00)
[2016-09-30 04:41] VITALS: BMI 38.5
[2016-09-30 04:55] LABS: PT-INR 2.7
[2016-09-30] MEDS: GABAPENTIN 300 MG CAP PO SCH ×2 (06:14→15:07)
[2016-09-30] MEDS: SERTRALINE HCL 100 MG TAB PO SCH (09:16)
[2016-09-30] MEDS: NITROFURANTOIN 100 MG CAP PO SCH (09:17)
[2016-09-30] MEDS: METOPROLOL (TOPROL-XL) 50 MG TAB PO SCH (09:17)
[2016-09-30] MEDS: POTASSIUM CHLORIDE 20 MEQ TAB PO SCH (09:17)
[2016-09-30] MEDS: METOLAZONE 5 MG TAB PO SCH (09:17)
[2016-09-30] MEDS: LISINOPRIL 20 MG TAB PO SCH (09:17)
[2016-09-30] MEDS: FUROSEMIDE 40 MG/4 ML VIAL IV SCH (09:17)
[2016-09-30] MEDS: AMLODIPINE 5 MG TAB PO SCH (09:17)
[2016-09-30] MEDS: GUAIFENESIN 600 MG LA TAB PO SCH (09:17)
[2016-09-30] MEDS: CHOLECALCIFEROL 1000 UNITS TAB PO SCH (09:17)
--- NOTE | 2016-09-30 09:17 | HISTPHYS ---
- Chief Complaint sob, cough - History of Present Illness 66 year old white female presented emergency room early on today for evaluation of progressive worsening difficulties breathing cough chest tightness wheezes and phlegm production. Patient stays that almost a week ago she has developed chest cold and head cold with clear nasal discharge and cough productive of small amount of clear sputum. Patient developed chest tightness wheezes and cough productive of thick yellowish greenish phlegm. Despite using home remedies she did not sustain asymptomatic improvement and early on today she has found herself gasping for air. She reports a pleuritic chest pain and low- grade fevers but denies any sweats or chills. Upon arrival in ED patient was found to be in moderate respiratory distress hypoxic tachypneic and tachycardic , chest x-ray showed right infrahilar infiltrate. Medical consultation was phoned in for inpatient treatment. - Medical History Cardiac History: Reports: Atrial Fibrillation, Hypertension, Congestive Heart Failure, Valvular Heart Disease Respiratory History: Reports: Asthma, Pneumonia GI/ History: Reports: Renal Disease, Urinary Tract Infection, Gastroesophageal Reflux Musculoskeletal History: Reports: Osteoarthritis Systemic History: Reports: Cancer Neurological History: Reports: No Significant History Psychological History: Reports: No Significant History. Denies: Depression - Surgical History Reports: Cholecystectomy, Hysterectomy, Tonsillectomy/Adnoidectomy, Other ( rotator,, skin cyst,right hip x 2 ,) - Medictions/Allergies Allergies metformin Allergy (Verified 07/31/15 16:09) Diarrhea stuff with seeds in it Allergy (Uncoded 09/27/16 15:54) Hives* cucumbers, tomatoes, etc. PT HAS DIVERTICULITIS. Current Medication List: Reviewed Home Medications Acetaminophen Ex Str Tablet [TYLENOL EXTRA STRENGTH Tablet] 1,000 mg PO Q8H PRN 07/31/15 Alprazolam 0.25 mg PO TID PRN 07/31/15 Amlodipine [Norvasc] 5 mg PO DAILY 07/31/15 Aspirin (Enteric Coated) [Ecotrin] 81 mg PO DAILY 07/31/15 Buspirone HCl [Buspar] 10 mg PO BID 07/31/15 Cholecalciferol [Vitamin D] 1,000 units PO DAILY 07/31/15 Gabapentin [Neurontin] 600 mg PO TID 07/31/15 Insulin Detemir [Levemir Flextouch] 42 units SQ QHS 07/31/15 Insulin Lispro [Humalog] 3 - 15 units SQ .PER SLIDING SCALE 07/31/15 Lisinopril [Prinivil] 20 mg PO DAILY 07/31/15 Magnesium Oxide [Mag-Ox] 400 mg PO BID 07/31/15 Melatonin/Pyridoxine HCl (B6) [Melatonin 1 mg Tablet] 2 tab PO QHS 07/31/15 Multivitamin [Multivitamins] 1 tab PO DAILY 07/31/15 Ropinirole HCl [Requip] 3 mg PO QHS 07/31/15 Warfarin Sodium [Coumadin] 7.5 mg PO SUMOWETHFR 07/31/15 Dulaglutide [Trulicity] 1.5 mg SQ SA 09/27/16 Ferrous Sulfate [Iron] 325 mg PO Q48H 09/27/16 LIDOCAINE 5% Patch [Lidoderm 5% Patch] 1 pat TOP Q12H PRN 09/27/16 Metolazone 5 mg PO DAILY 09/27/16 Metoprolol Succinate [Toprol Xl] 50 mg PO DAILY 09/27/16 Nitrofurantoin [Macrobid] 100 mg PO DAILY 09/27/16 Oxycodone HCl [Oxaydo] 5 mg PO TID PRN 09/27/16 Potassium Chloride 20 meq PO DAILY 09/27/16 Sertraline HCl [Zoloft] 200 mg PO DAILY 09/27/16 Warfarin Sodium 10 mg PO TUSA 09/27/16 - Family History Reports: Cardiac Disorders, Respiratory Disorders - Social History Travel Outside of [place] in the Last 3 Months?: No Lives: With Family Smoking Status: Never smoker - Review of Systems Constitutional: Fever, Diaphoresis, Fatigue, Loss of Appetite, Weakness Eyes: No Symptoms Reported Ears: No Symptoms Reported Nose: No Symptoms Reported Mouth: No Symptoms Reported Throat/Neck: No Symptoms Reported Respiratory: Cough, Shortness of Breath, Wheezing, Sputum, Dyspnea Cardiovascular: No Symptoms Reported Gastrointestinal: No Symptoms Reported, Constipation, Heartburn Genitourinary: No Symptoms Reported Neurological: No Symptoms Reported Musculoskeletal:: Arthritis Integumentary: No Symptoms Reported Allergic/Immunologic: No Symptoms Reported Hematologic: No Symptoms Reported Endocrine: No Symptoms Reported Psychiatric: No Symptoms Reported - Physical Exam Vital Signs: Initial Vitals Temperature 98.9 F 09/27/16 13:55 Pulse Rate 99 09/27/16 13:55 Respiratory Rate 24 09/27/16 13:55 Blood Pressure 130/56 L 09/27/16 13:55 Pulse Oxygen Saturation 91 09/27/16 13:55 Constitutional: Alert, Distress Oriented to: Time, Person, Place - HEENT Head: Normal Eye: Normal Oropharynx: Normal ENT EAC: Normal TMJ: Normal Nose: No Symptoms Reported Respiratory: Normal - CTA, Diminished, Rhonchi, Wheezes Cardiovascular: Normal, Systolic murmur - GI Auscultation: Normal Palpation: Normal Tenderness: Non tender Rectal Exam: Deferred - Exam Deferred: Yes - Musculoskeletal Back: Normal Extremities: Edema Spine: limited range of motion - Integumentary Skin: Normal, Warm, Dry Lymphatics: Normal - Neurologic Memory Impaired: Normal Motor Function: Normal Cranial Nerve: Normal Cerebellar: Normal Mood Description: Anxious Thought: Coherent Perception: Normal - Focused CV Perfusion Exam Vital Signs: Last Vital Signs Temp 98.9 F 09/27/16 13:55 Pulse 83 09/27/16 17:05 Resp 22 09/27/16 17:05 BP 138/63 09/27/16 17:05 Pulse Ox 93 09/27/16 17:05 - Diagnostic Findings Last Vital Signs Temp 98.9 F 09/27/16 13:55 Pulse 83 09/27/16 17:05 Resp 22 09/27/16 17:05 BP 138/63 09/27/16 17:05 Pulse Ox 93 09/27/16 17:05 09/27/16 14:07 09/27/16 14:07 Abnormal Lab Results 09/27/16 09/27/16 09/27/16 14:07 14:07 14:07 RBC 5.48 H MCV 76 L MCH 24.5 L MCHC 32.3 L RDW 17.3 H PT 24.6 H APTT 40.4 H pO2 HCO3 Total CO2 BUN 19 H Glucose 128 H Digoxin 09/27/16 09/27/16 14:07 15:10 RBC MCV MCH MCHC RDW PT APTT pO2 65.0 L HCO3 26.6 H Total CO2 27.9 H BUN Glucose Digoxin < 0.40 L Patient Name: ANATOLY SANCHEZ LOC: ED : 1950 AGE: 66 Order Date:09/27/16 Date of Service: Report # [id number] Ord Physician: Fernando Dowell MD Exam # [id number] Emergency Physician: Mona Rodriguez MD Exam(s): [id number] RAD/DG CHEST 2V CLINICAL DATA: Cough, dyspnea. EXAM: CHEST 2 VIEW COMPARISON: March 31, 2014. FINDINGS: Stable cardiomediastinal silhouette. No pneumothorax or pleural effusion is noted. Left lung is clear. Increased right infrahilar opacity is noted concerning for possible pneumonia. Bony thorax unremarkable. IMPRESSION: Increased right infrahilar opacity is noted concerning for possible pneumonia. Follow-up radiographs are recommended to ensure resolution. Electronically Signed By: Kermit Warner Jr, M.D. On: 09/27/2016 15:17 Electronically Signed By: Kermit Warner MD - Assessment (1) Acute respiratory failure with hypoxia J96.01 - ACUTE RESPIRATORY FAILURE WITH HYPOXIA Acute Present on Admission: Yes Patient will be admitted to monitor bed.. Supplemental O2 will be provided. Monitor pulmonary status closely. Will provide flutter valve and incentive spirometer. (2) Bacterial pneumonia J15.9 - UNSPECIFIED BACTERIAL PNEUMONIA Acute Present on Admission: Yes Patient will receive IV antibiotics in the form of Rocephin and Zithromax. Continue aggressive pulmonary toileting. Monitor cultures. (3) Afib I48.91 - UNSPECIFIED ATRIAL FIBRILLATION Chronic Present on Admission: Yes Qualifiers: Atrial fibrillation type: chronic Qualified Code(s): I48.2 - Chronic atrial fibrillation Rate controlled. Keep K more than 4 magnesium more than 2. coagulated with Coumadin. (4) HTN (hypertension) I10 - ESSENTIAL (PRIMARY) HYPERTENSION Chronic Present on Admission: Yes Qualifiers: Hypertension type: essential hypertension Qualified Code(s): I10 - Essential (primary) hypertension Stable on meds, keep SBP less than 140. (5) DM2 (diabetes mellitus, type 2) E11.9 - TYPE 2 DIABETES MELLITUS WITHOUT COMPLICATIONS Acute Qualifiers: Diabetes mellitus complication status: with neurologic complications Continue ADA diet Lantus and sliding scale regular insulin. Monitor blood sugar. (6) GERD (gastroesophageal reflux disease) K21.9 - GASTRO-ESOPHAGEAL REFLUX DISEASE WITHOUT ESOPHAGITIS Chronic Present on Admission: Yes Qualifiers: Esophagitis presence: without esophagitis Qualified Code(s): K21.9 - Gastro -esophageal reflux disease without esophagitis Continue PPI Case Care Discussed with: Patient, Family, Nursing Staff, Respiratory Therapy, Director Payment Total Time: 60 min Critical Care: No Code: 93010 MTDD
[2016-09-30] MEDS: BUSPIRONE 10 MG TAB PO SCH (09:20)
[2016-09-30] MEDS: VITAMINS, MULTIPLE CAP PO SCH (09:20)
[2016-09-30] MEDS: FERROUS SULFATE 324 MG TAB PO SCH (09:20)
[2016-09-30] MEDS: ACETAMINOPHEN 500 MG CAPLET PO PRN (09:24)
[2016-09-30 09:57] VITALS: BP 111/69; PULSE 76; TEMP 97.9
[2016-09-30] MEDS ORDERED: DIATRIZOATE MEGLMINE/SODIUM 30 ML BOTTLE PO ONE (10:02)
--- NOTE | 2016-09-30 10:14 | GENMEDPROG ---
Subjective Note: Patient in bed responsive follows commands. Breathing better still coughing producing small amount of foamy yellowish sputum no hemoptysis. Since last night she has developed left lower quadrant sharp stabbing pain that feels different and her IBS related pain. Patient denies any nausea vomiting melena. Notes Reviewed: Yes Events from last night noted and discussed with Clinical Staff Current Medication List: Reviewed Currently: Reports: Cough, Wheezing, DOUGLAS, SOB, Sputum, Reflux Sx DVT Prophylaxis: Yes - Physical Examination Vital Signs and I&O: Last Vital Signs Temp 97.9 F 09/30/16 09:00 Pulse 76 09/30/16 09:00 Resp 20 09/30/16 09:00 BP 111/69 09/30/16 09:00 Pulse Ox 95 09/30/16 09:00 Oxygen Pulse Oxygen Saturation 95 O2 Device Nasal Cannula Oxygen Flow Rate 1.5 Fraction of Inspired Oxygen ( FIO2) Intake & Output 09/27/16 09/28/16 09/29/16 09/30/16 23:59 23:59 23:59 23:59 Intake Total 100 1809 2025 836 Output Total 1600 4200 900 Balance 100 209 -2175 -64 Patient's weight 128.548 kg 128.548 kg 128.083 kg 125.418 kg General: Alert, Oriented x3, Cooperative, No acute distress HEENT: Normal, PERRLA, EOMI, Anicteric Sclera Neck: Non-tender, Normal inspection, Limited range of motion Lymphatics: Normal Respiratory: Normal - CTA, Diminished, Rhonchi, Wheezes Cardiovascular: Regular rate, Normal S1, Normal S2 GI: Normal bowel sounds, Soft, Non tender, No hepatospenomegaly, No masses, Obese Extremities/Musculoskeletal: Edema, DJD Skin: Warm,Dry and Intact, No rashes, No breakdown, No significant lesion Neurological: Normal speech, Normal tone, Cranial nerves 3-12 NL Psych/Mental Status: Anxious Lab/DI/Studies Reviewed: Last Vital Signs Temp 97.9 F 09/30/16 09:00 Pulse 76 09/30/16 09:00 Resp 20 09/30/16 09:00 BP 111/69 09/30/16 09:00 Pulse Ox 95 09/30/16 09:00 09/29/16 02:55 09/29/16 02:55 Abnormal Lab Results 09/29/16 09/29/16 09/30/16 11:44 15:44 00:03 PT POC Capillary Glucose 342 H 372 H 282 H 09/30/16 09/30/16 03:05 04:45 PT 27.7 H POC Capillary Glucose 195 H - Assessment (1) Acute respiratory failure with hypoxia Acute J96.01 - ACUTE RESPIRATORY FAILURE WITH HYPOXIA Comment/Plan: Continue O2 nebs and pulmonary toilet. Monitor pulmonary status. Clinically improving wean off O2 as tolerated. Increase activity (2) Bacterial pneumonia Acute J15.9 - UNSPECIFIED BACTERIAL PNEUMONIA Comment/Plan: Continue IV antibiotics in the form of Rocephin and Zithromax, continue aggressive pulmonary toilet. Wean off IV steroids (3) Afib Chronic I48.91 - UNSPECIFIED ATRIAL FIBRILLATION Qualifiers: Atrial fibrillation type: chronic Qualified Code(s): I48.2 - Chronic atrial fibrillation Comment/Plan: Rate controlled. Keep K more than 4 magnesium more than 2. coagulated with Coumadin. (4) HTN (hypertension) Chronic I10 - ESSENTIAL (PRIMARY) HYPERTENSION Qualifiers: Hypertension type: essential hypertension Qualified Code(s): I10 - Essential (primary) hypertension Comment/Plan: Stable on meds, keep SBP less than 140. (5) DM2 (diabetes mellitus, type 2) Acute E11.9 - TYPE 2 DIABETES MELLITUS WITHOUT COMPLICATIONS Qualifiers: Diabetes mellitus complication status: with neurologic complications Comment/Plan: Continue ADA diet Lantus and sliding scale regular insulin. Monitor blood sugar continue high-dose sliding scale regular insulin (6) GERD (gastroesophageal reflux disease) Chronic K21.9 - GASTRO-ESOPHAGEAL REFLUX DISEASE WITHOUT ESOPHAGITIS Qualifiers: Esophagitis presence: without esophagitis Qualified Code(s): K21.9 - Gastro -esophageal reflux disease without esophagitis Comment/Plan: Continue PPI (7) Abdominal pain Acute R10.9 - UNSPECIFIED ABDOMINAL PAIN Qualifiers: Abdominal location: left lower quadrant Qualified Code(s): R10.32 - Left lower quadrant pain Comment/Plan: Will obtain CT scan abdomen and pelvis with p.o. and IV contrast. Case Care Discussed with: Patient, Family, Nursing Staff, Buttonhole Maker Education/Counseling Given To: Patient Education/Counseling Given Regarding: Diagnosis, Treatment, Prognosis, Follow Up Total Time: 45 min . Critical Care: No Code: 86916 (12+)
[2016-09-30] MEDS ORDERED: Pharmacy Review for Metformin - IV Contrast Given SCH ×2 (11:00)
--- NOTE | 2016-09-30 13:34 | DIRPT ---
CLINICAL DATA: Lower abdominal pain and fever for 2-3 days. EXAM: CT ABDOMEN AND PELVIS WITH CONTRAST TECHNIQUE: Multidetector CT imaging of the abdomen and pelvis was performed using the standard protocol following bolus administration of intravenous contrast. CONTRAST: 100 cc Isovue 370 COMPARISON: 06/01/2011. FINDINGS: Lower chest: The lung bases are clear of acute process. No pleural effusion or pulmonary lesions. The heart is upper limits of normal in size. No pericardial effusion. Coronary artery calcifications are noted. The distal esophagus is grossly normal. Hepatobiliary: No focal hepatic lesions or intrahepatic biliary dilatation. The gallbladder surgically absent. No common bile duct dilatation. Pancreas: No mass, inflammation or ductal dilatation. Spleen: Mild splenomegaly. The spleen measures 14.5 x 13.3 x 10.0 cm. No focal lesions. Adrenals/Urinary Tract: The adrenal glands are normal. Scarring changes involving the left kidney and simple appearing cyst. No worrisome renal lesion or hydronephrosis. No obstructing ureteral calculi or bladder calculi. Stomach/Bowel: The stomach, duodenum, small bowel and colon are unremarkable. No inflammatory changes, mass lesions or obstructive findings. Moderate diverticulosis of the descending and sigmoid colon but no findings for acute diverticulitis. Vascular/Lymphatic: No mesenteric or retroperitoneal mass or adenopathy. The aorta and branch vessels are patent. Moderate scattered atherosclerotic calcifications. The major venous structures are patent. Other: The uterus is surgically absent. No pelvic mass or adenopathy. No free pelvic fluid collections. No inguinal mass or adenopathy. Musculoskeletal: Surgical changes involving the right hip from a prior total right hip arthroplasty. Moderate heterotopic ossification. Moderate degenerative changes involving the spine and left hip. IMPRESSION: 1. No acute abdominal/pelvic findings, mass lesions or lymphadenopathy. 2. Mild splenomegaly. 3. Status post cholecystectomy and hysterectomy. No biliary dilatation. 4. Renal scarring changes and small renal cysts. 5. Colonic diverticulosis without findings for acute diverticulitis. Electronically Signed By: Nabor Almaraz M.D. On: 09/30/2016 13:32
--- NOTE | 2016-09-30 14:07 | PCM.DCS92 ---
- Final/Secondary Discharge Diagnosis (1) Acute respiratory failure with hypoxia Resolved J96.01 - ACUTE RESPIRATORY FAILURE WITH HYPOXIA Present on Admission: Yes Comment: Weaned off O2. Continue mucolytics and aggressive pulmonary toilet. (2) Bacterial pneumonia Acute J15.9 - UNSPECIFIED BACTERIAL PNEUMONIA Present on Admission: Yes Comment: Continue and finish course of p.o. antibiotic. (3) Afib Chronic I48.91 - UNSPECIFIED ATRIAL FIBRILLATION Present on Admission: Yes chronic I48.2 - Chronic atrial fibrillation Comment: Rate controlled. Keep K more than 4 magnesium more than 2. Anticoagulated with Coumadin. (4) HTN (hypertension) Chronic I10 - ESSENTIAL (PRIMARY) HYPERTENSION essential hypertension I10 - Essential (primary) hypertension Comment: Stable on meds, keep SBP less than 140. (5) DM2 (diabetes mellitus, type 2) Acute E11.9 - TYPE 2 DIABETES MELLITUS WITHOUT COMPLICATIONS Present on Admission: Yes with neurologic complications Comment: Continue ADA diet Lantus and sliding scale regular insulin. Monitor blood sugar continue high-dose sliding scale regular insulin (6) GERD (gastroesophageal reflux disease) Chronic K21.9 - GASTRO-ESOPHAGEAL REFLUX DISEASE WITHOUT ESOPHAGITIS without esophagitis K21.9 - Gastro-esophageal reflux disease without esophagitis Comment: Continue PPI (7) Abdominal pain Acute R10.9 - UNSPECIFIED ABDOMINAL PAIN left lower quadrant R10.32 - Left lower quadrant pain Comment: CT of abdomen and pelvis showed no pathology. Copy of report provided the patient for home records Discharge Disposition: Discharge w/ Home Health Discharge Condition: Improved Cognitive Discharge Status: Unimpaired Fuctional Discharge Status: Independent Physician Follow up/Referrals: Leola Knight PA [Primary Care Provider] - One Week New Prescriptions: Levofloxacin [Levaquin] 750 mg PO DAILY #7 tablet Guaifenesin [Mucinex] 1,200 mg PO BID #20 tbmp.12hr Prednisone 10 mg PO DAILY #20 tab.ds.pk Levalbuterol [Xopenex Hfa] 15 gm IH Q6 #2 inh O2 Device: Room Air Oxygen to be used after Discharge: Continuous, While Ambulating, At Night or During Sleep Diet at Discharge: As Tolerated, Regular, Cardiac, Low Salt, Diabetic, 2200 Calorie, High Fiber Activity: As Tolerated Call Office For: Worsening Symptoms, Fever over 101 F Discontinue use of:: Alcohol, All Illegal Substances, All Types of Tobacco - DC Summary Notes Hospital Course Note:: Discharge summary on patient named ANATOLY SANCHEZ admitted to [facility] on 09/27/16 by Omer Duffy MD. Date of discharge is . Patient was initially brought to emergency room on September 27 for evaluation of worsening difficulties breathing cough phlegm production chest tightness wheezes low-grade fevers and sweats. Please refer the admission for further details. Upon arrival in ED patient was found to be in moderate respiratory distress hypoxic tachypneic and tachycardic. Chest x-ray show bilateral bibasilar infiltrates. Treatment broad-spectrum antibiotics in the form of Rocephin and Zithromax was instituted patient was admitted to telemetry floor. Given significant bronchospasm and bronchorrhea she required IV steroids. Outpatient regimen for chronic medical conditions was continued. She was kept on Coumadin and INR was monitored and was kept therapeutic. Patient remained atrial fibrillation with controlled rate. She was gradually weaned off the oxygen, her activity level was gradually advanced. Once in-hospital she has developed left lower quadrant pain which she describes as different from her typical IBS pain. CT scan of abdomen and pelvis showed no intra-abdominal pathology. Repeated PA and lateral chest x-ray show no change in bibasilar atelectasis versus infiltrates. It was felt that by September 30 patient has reached maximum benefit of inpatient therapy and in clinically stable and improved condition at her preference and insistence she has been discharged home to the care of the family her PCP. Patient is to complete 7 more days of p.o. antibiotic and she was clearly instructed to have her PT and INR rechecked Q 3 days while on the antibiotic. Total Time: 40 min . Code: 67110 (>30min.) - Physical Exam Vital Signs: Last Vital Signs Temp 97.9 F 09/30/16 09:00 Pulse 76 09/30/16 09:00 Resp 20 09/30/16 09:00 BP 111/69 09/30/16 09:00 Pulse Ox 96 09/30/16 13:39 Oxygen Pulse Oxygen Saturation 96 O2 Device Room Air Oxygen Flow Rate 1 Fraction of Inspired Oxygen ( FIO2) Constitutional: Alert (Awake), No apparent distress Oriented to: Time, Person, Place - HEENT Head: Normal ( normocephalic) Eye: Normal (PERRL, EOMI, Sclera white) Oropharynx: Normal (Pharynx:Moist without exudate,Gums-no swelling) ENT EAC: Normal TMJ: Normal Nose: No Symptoms Reported (septum midline) - Respiratory/Cardiovascular Respiratory: Normal - CTA, Diminished, Rhonchi, Wheezes Cardiovascular: Normal, Systolic murmur - GI Auscultation: Normal (NABS) Palpation: Normal (Soft,No rebound or guarding, non distended) Tenderness: Non tender Cevallos's Sign: Negative Rectal Exam: Deferred - Exam Deferred: Yes - Musculoskeletal Back: Normal (Non-Tender) Extremities: Normal (Normal tone, Pulses 2+ No cyanosis or edema, FROM), Edema - Integumentary Skin: Normal, Warm, Dry Lymphatics: Normal - Neurologic Memory Impaired: Normal Motor Function: Normal Cranial Nerve: Normal Cerebellar: Normal Mood Description: Normal, Anxious Thought: Coherent Perception: Normal - Other Exam Other Exam Findings: Allergies metformin Allergy (Verified 07/31/15 16:09) Diarrhea stuff with seeds in it Allergy (Uncoded 09/27/16 15:54) Hives* cucumbers, tomatoes, etc. PT HAS DIVERTICULITIS. Last Vital Signs Temp 97.9 F 09/30/16 09:00 Pulse 76 09/30/16 09:00 Resp 20 09/30/16 09:00 BP 111/69 09/30/16 09:00 Pulse Ox 95 09/30/16 14:07 09/29/16 02:55 09/29/16 02:55 Patient Name: ANATOLY SANCHEZ Courtesy Copy to: Diagnostic Imaging Report [facility] [address] [place] [address] [phone] Diagnostic Imaging Services Courtesy Copy to: Diagnostic Imaging Report Patient Name: ANATOLY SANCHEZ LOC: [facility] : 1950 AGE: 66 Order Date:09/30/16 Date of Service: Report # [id number] Ord Physician: Omer Duffy MD Exam # [id number] Emergency Physician: Mona Rodriguez MD Exam(s): [id number] CT/CT ABD-PELV W/IV CM CLINICAL DATA: Lower abdominal pain and fever for 2-3 days. EXAM: CT ABDOMEN AND PELVIS WITH CONTRAST TECHNIQUE: Multidetector CT imaging of the abdomen and pelvis was performed using the standard protocol following bolus administration of intravenous contrast. CONTRAST: 100 cc Isovue 370 COMPARISON: 06/01/2011. FINDINGS: Lower chest: The lung bases are clear of acute process. No pleural effusion or pulmonary lesions. The heart is upper limits of normal in size. No pericardial effusion. Coronary artery calcifications are noted. The distal esophagus is grossly normal. Hepatobiliary: No focal hepatic lesions or intrahepatic biliary dilatation. The gallbladder surgically absent. No common bile duct dilatation. Pancreas: No mass, inflammation or ductal dilatation. Spleen: Mild splenomegaly. The spleen measures 14.5 x 13.3 x 10.0 cm. No focal lesions. Adrenals/Urinary Tract: The adrenal glands are normal. Scarring changes involving the left kidney and simple appearing cyst. No worrisome renal lesion or hydronephrosis. No obstructing ureteral calculi or bladder calculi. Stomach/Bowel: The stomach, duodenum, small bowel and colon are unremarkable. No inflammatory changes, mass lesions or obstructive findings. Moderate diverticulosis of the descending and sigmoid colon but no findings for acute diverticulitis. Vascular/Lymphatic: No mesenteric or retroperitoneal mass or adenopathy. The aorta and branch vessels are patent. Moderate scattered atherosclerotic calcifications. The major venous structures are patent. Other: The uterus is surgically absent. No pelvic mass or adenopathy. No free pelvic fluid collections. No inguinal mass or adenopathy. Musculoskeletal: Surgical changes involving the right hip from a prior total right hip arthroplasty. Moderate heterotopic ossification. Moderate degenerative changes involving the spine and left hip. IMPRESSION: 1. No acute abdominal/pelvic findings, mass lesions or lymphadenopathy. 2. Mild splenomegaly. 3. Status post cholecystectomy and hysterectomy. No biliary dilatation. 4. Renal scarring changes and small renal cysts. 5. Colonic diverticulosis without findings for acute diverticulitis. Electronically Signed By: Nabor Almaraz M.D. On: 09/30/2016 13:32 Electronically Signed By: Leonel Almarza MD Electronically Signed Date/Time: [id number] Dictate Date/Time: 09/30/16 1322 Technologist: Jesús Nation Transcribed By: VRTran Transcribed Date/Time: 09/30/16 1332 Patient Name: ANATOLY SANCHEZ LOC: [facility] : 1950 AGE: 66 Order Date:09/28/16 Date of Service: Report # [id number] Ord Physician: Omer Duffy MD Exam # [id number] Emergency Physician: Mona Rodriguez MD Exam(s): [id number] RAD/DG CHEST 2V CLINICAL DATA: Respiratory failure EXAM: CHEST 2 VIEW COMPARISON: 09/27/2016 FINDINGS: Normal cardiac silhouette. There is bibasilar opacities not significant changed from prior. Upper lungs are clear. Flowing osteophytosis of the thoracic spine. IMPRESSION: No change in bibasilar atelectasis versus infiltrates. Electronically Signed By: Osman Golden M.D. On: 09/29/2016 10:41 Electronically
[2016-09-30] MEDS: MAGNESIUM OXIDE 400 MG TAB PO SCH (15:07)
[2016-09-30] MEDS ORDERED: METHYLPREDNISOLONE 40 MG/1 ML VIAL IV SCH (21:00)
== END 2016-09-30 15:50 | disposition home or self-care (01) | DRG 193 ==
LOC: ED 12:48 → EDINP 17:49 → PCU 21:09
PROVIDERS: ADMIT Internal Medicine; ATTEND Internal Medicine
PROC: 039B3ZZ Drainage of Right Radial Artery, Percutaneous Approach (ICD-10-PCS; principal; 2016-09-27)
DX: J15.9 Unspecified bacterial pneumonia (principal); J96.01 Acute respiratory failure with hypoxia; I48.2 Chronic atrial fibrillation; I10 Essential (primary) hypertension; E11.49 Type 2 diabetes mellitus with other diabetic neurological complication; K21.9 Gastro-esophageal reflux disease without esophagitis; R10.32 Left lower quadrant pain; I50.9 Heart failure, unspecified; I51.9 Heart disease, unspecified; J45.909 Unspecified asthma, uncomplicated; Z87.01 Personal history of pneumonia (recurrent); M19.90 Unspecified osteoarthritis, unspecified site; Z85.89 Personal history of malignant neoplasm of other organs and systems; Z88.8 Allergy status to other drugs, medicaments and biological substances; Z79.01 Long term (current) use of anticoagulants; Z79.82 Long term (current) use of aspirin; Z79.899 Other long term (current) drug therapy; Z79.4 Long term (current) use of insulin
CPT/HCPCS: 36415; 36600; 71020; 74177; 80048; 80053; 80162; 82272; 82550; 82803; 82962; 83605; 83735; 83880; 84484; 85025; 85610; 85730; 87040; 93005; 94640; 94664; 96365; 96372; 96375; 99283; A9698; G0237; J0456; J0696; J1940; J2920; J2930; J3475; J3490; J7060; J7070